=== PATIENT | female | born 2000 | race Caucasian/White ===

== ENCOUNTER 2019-12-17 22:58 | Emergency (ER) | payer MEDICAID ==
[~2019-12-17] VITALS: Ht 177.8 cm; Wt 82.6 kg
[2019-12-17 23:25] VITALS: BP 146/87
--- NOTE | 2019-12-17 23:56 | PHYS DOC ---
General Adult EDM: Chief Complaint: OTHER COMPLAINTS HPI: HPI: 19-year-old @ 5w1d (based on LMP 11/10) female past medical history significant for tobacco dependence, preclampsia and first trimester SAB, presents to the ED with complaints of " I have numbness and tingling all over my entire body," for the past 3 days. Reports positive test December 05. No recent illness involving vomiting, diarrhea or fluid loss. Has been told she has hypertension but has never been prescribed medications. Denies any drug use including cocaine use. No history of IVF. No pmd. Is taking vitamins. ROS: Denies any fever, chills, sore throat, cough, dyspnea, chest pain, nausea, vomiting, diarrhea, abdominal pain, vaginal bleeding, abnormal vaginal discharge, dysuria, hematuria, flank pain, leg swelling, hemoptysis or rash. Allergies: Allergies: Allergies Coded Allergies Type Severity Reaction Last Updated Verified cyclobenzaprine Allergy Intermediate Hives 12/17/19 Yes Physical Exam: PE: Constitutional: Well developed, well nourished, no acute distress, non-toxic appearance. [] HENT: Normocephalic, atraumatic, bilateral external ears normal, oropharynx moist, no oral exudates, nose normal. [] Eyes: EOMI, conjunctiva normal, no discharge. [] Neck: Normal range of motion, no tenderness, supple, no stridor. [] Cardiovascular:Heart rate regular rhythm, no murmur [] Lungs & Thorax: Bilateral breath sounds clear to auscultation [] Abdomen: Bowel sounds normal, soft, no tenderness, no masses, no pulsatile masses. [] Skin: Warm, dry, no erythema, no rash. [] Back: No tenderness, no CVA tenderness. [] Extremities: No tenderness, no cyanosis, no clubbing, ROM intact, no edema. [] Neurologic: Alert and oriented X 3, normal motor function, normal sensory function, no focal deficits noted. [] Psychologic: Affect normal, judgement normal, mood normal. [] EKG: EKG: [] Radiology/Procedures: Radiology/Procedures: IMAGING REPORT Signed PATIENT: BASHIR REYES ACCOUNT: [id number] : 2000 LOCATION: ER AGE: 19 SEX: F EXAM STATUS: REG ER ORD. PHYSICIAN: CHASIDY OSULLIVAN DO REASON: confirm iup PROCEDURE: PREG 1ST TRIMESTER First trimester obstetric ultrasound with transvaginal transducer HISTORY: Right female with pelvic pain. FINDINGS: Uterus measures 9.4 x 7.3 x 4.9 cm. There is a single intrauterine gestational sac with a yolk sac which has a diameter of 4 mm, subjectively normal volume of amniotic fluid and a early pole with crown-rump length of 4 mm ascending sonographic gestational age of 6 weeks 0 days and estimated sonographic date of delivery of August 12, 2020 concordant with the clinical gestational age of 5 weeks 2 days. heart rate is 90 bpm. No subchorionic hemorrhage. Left ovary measures 1.5 x 2.1 x 1.5 cm with intact blood flow. Right ovary measures 2.1 x 4.1 x 2.6 cm with intact blood flow and an associated 2.6 cm heterogeneous hypoechoic focus without internal blood flow most likely a corpus luteum or hemorrhagic cyst. No pelvic fluid. Bilateral intact ovarian blood flow. IMPRESSION: Single living intrauterine with estimated sonographic gestational age of 6 weeks 0 days. There is a right ovarian 2.6 cm hypoechoic focus most likely a corpus luteum. Electronically signed by: Lisseth Pardo MD (12/18/2019 12:45 AM) [facility] [place] DICTATED AND SIGNED BY: LISSETH PARDO MD DATE: 12/18/19 0045 CC: PCP,NO; CHASIDY OSULLIVAN DO ~ Course & Med Decision Making: Course & Med Decision Making Pertinent Labs and Imaging studies reviewed. (See chart for details) Patient presented to the ED with whole body tingling, no well-appearing, hemodynamically stable patient. Labs unremarkable with no electrolyte abnormality. Ultrasound shows normal intrauterine . Patient with no abdominal pain or vaginal bleeding. Low suspicion for life-threatening proc esses at this time. Encouraged PMD follow-up, OB establishment and daily vitamins. Strict ED return precautions were given for abdominal pain or strokelike symptoms. All of her questions were answered and she was stable at time of discharge. I spoken with the patient and her caregivers. I explained the patient's condition, diagnoses and treatment plan based on the information available to me at this time. I have answered the patient and her caregiver's questions and addressed any concerns. The patient and her caregivers have a good understanding of patient's diagnosis, condition and treatment plan as can be expected at this point. Vital signs have been stable. Patient's condition is stable and appropriate for discharge from the emergency department. Patient will pursue further outpatient evaluation with primary care physician or other designated or consulting physician as outlined in the discharge instructions. The patient and/or caregivers are agreeable to this plan of care and follow-up instructions have been explained in detail. The patient and/or caregivers have received these instructions in written form and have expressed an understanding of the discharge instructions. The patient and/or caregivers are aware that any significant change of condition or worsening of symptoms should prompt immediate return to this or the closest emergency department or call to 911. Katt Disclaimer: Katt Disclaimer: This electronic medical record was generated, in whole or in part, using a voice recognition dictation system. Departure Departure: Impression: Primary Impression: Intrauterine Additional Impression: Tingling sensation Disposition: 01 HOME/RESIDENCE PRIOR TO ADM Condition: STABLE Referrals: PCP,NO (PCP) Patient Instructions: ABCs of Justification of Admission: Justification of Admission: Justification of Admission Dx: N/A CHASIDY OSULLIVAN DO Dec 17, 2019 23:56
[2019-12-18 00:26] LABS: HEMATOCRIT 38.9 % (36.0-47.0); HEMOGLOBIN 12.9 g/dL (12.0-15.5); RED BLOOD COUNT 4.73 x10^6/uL (3.50-5.40); RED CELL DISTRIBUTION WIDTH 15.7 % (11.5-14.5); WHITE BLOOD COUNT 8.2 x10^3/uL (4.0-11.0)
--- NOTE | 2019-12-18 00:48 | RAD ---
First trimester obstetric ultrasound with transvaginal transducer HISTORY: Right female with pelvic pain. FINDINGS: Uterus measures 9.4 x 7.3 x 4.9 cm. There is a single intrauterine gestational sac with a yolk sac which has a diameter of 4 mm, subjectively normal volume of amniotic fluid and a early pole with crown-rump length of 4 mm ascending sonographic gestational age of 6 weeks 0 days and estimated sonographic date of delivery of August 12, 2020 concordant with the clinical gestational age of 5 weeks 2 days. heart rate is 90 bpm. No subchorionic hemorrhage. Left ovary measures 1.5 x 2.1 x 1.5 cm with intact blood flow. Right ovary measures 2.1 x 4.1 x 2.6 cm with intact blood flow and an associated 2.6 cm heterogeneous hypoechoic focus without internal blood flow most likely a corpus luteum or hemorrhagic cyst. No pelvic fluid. Bilateral intact ovarian blood flow. IMPRESSION: Single living intrauterine with estimated sonographic gestational age of 6 weeks 0 days. There is a right ovarian 2.6 cm hypoechoic focus most likely a corpus luteum. Electronically signed by: Carlos Acuna MD (12/18/2019 12:45 AM) [facility]
[2019-12-18 00:52] LABS: ALBUMIN 3.8 g/dL (3.4-5.0); ALBUMIN/GLOBULIN RATIO 1.1 (1.0-1.7); CALCIUM 9.2 mg/dL (8.5-10.1); CREATININE 0.9 mg/dL (0.6-1.0); POTASSIUM 3.5 mmol/L (3.5-5.1); TOTAL BILIRUBIN 0.2 mg/dL (0.2-1.0); TOTAL PROTEIN 7.2 g/dL (6.4-8.2)
== END 2019-12-18 01:35 | disposition home or self-care (01) ==
LOC: ER 22:58
DX: O26.891 Other specified pregnancy related conditions, first trimester (principal); R20.2 Paresthesia of skin; Z3A.01 Less than 8 weeks gestation of pregnancy; Z88.8 Allergy status to other drugs, medicaments and biological substances
CPT/HCPCS: 36415; 76801; 80053; 84702; 85027; 99284